=== PATIENT | male | born 1980 | race African-American/Black ===

== ENCOUNTER 2017-03-04 07:44 | Emergency (ER) | payer SELFPAY ==
[~2017-03-04] VITALS: Ht 177.8 cm; Wt 94.3 kg
[2017-03-04 07:50] VITALS: BP 142/95
[2017-03-04] MEDS ORDERED: HYDROcodone-ACET 10/325MG TAB PO ONE (08:30)
[2017-03-04] MEDS ORDERED: cefTRIAXone SOD 1,000 MG VL IM ONE (08:30)
== END 2017-03-04 09:34 | disposition home or self-care (01) ==
LOC: ER 07:44
DX: K08.89 Other specified disorders of teeth and supporting structures (principal)
CPT/HCPCS: 70486; 96372; 99284; J0696

== ENCOUNTER 2017-07-18 09:54 | Emergency (ER) | payer SELFPAY ==
[~2017-07-18] VITALS: Ht 177.8 cm; Wt 108.9 kg
[2017-07-18 10:02] VITALS: BP 151/98
[2017-07-18] MEDS ORDERED: IBUPROFEN 800 MG TAB PO ONE (11:30)
[2017-07-18] MEDS ORDERED: cefTRIAXone SOD 1,000 MG VL IM ONE (11:30)
== END 2017-07-18 11:58 | disposition home or self-care (01) ==
LOC: ER 09:54
DX: J03.90 Acute tonsillitis, unspecified (principal)
CPT/HCPCS: 96372; 99283; J0696

== ENCOUNTER 2018-03-15 17:18 | Emergency (ER) | payer SELFPAY ==
[~2018-03-15] VITALS: Ht 177.8 cm; Wt 106.6 kg
[2018-03-15 17:41] VITALS: BP 169/90
== END 2018-03-15 22:38 | disposition home or self-care (01) ==
LOC: ER 17:20
DX: B07.9 Viral wart, unspecified (principal)